=== PATIENT | female | born 1970 | race Caucasian/White ===

== ENCOUNTER 2017-12-14 17:01 | Emergency (ER) | payer OTHER ==
--- NOTE | 2017-12-14 18:18 | RAD ---
INDICATION: Right hand pain COMPARISON: None TECHNIQUE: AP, lateral, and oblique views were obtained. FINDINGS: There is no acute fracture or dislocation. There is moderate osteoarthritis about the first CMC articulation with narrowing, sclerosis, and mild subluxation. There is no significant soft tissue swelling. IMPRESSION: OSTEOARTHRITIS FIRST CMC JOINT.
--- NOTE | 2017-12-14 18:19 | RAD ---
INDICATION: Left knee pain COMPARISON: None TECHNIQUE: AP, lateral, tunnel, and sunrise views were obtained. FINDINGS: There is tricompartmental osteoarthritic change with condylar spurring and sclerosis and hypertrophic change with narrowing and sclerosis about the patellofemoral joint space compartment. There is no acute bony change. There is no joint effusion. IMPRESSION: TRICOMPARTMENTAL OSTEOARTHRITIS MOST SEVERE ABOUT THE PATELLOFEMORAL JOINT SPACE
--- NOTE | 2017-12-14 18:41 | ED ---
Lower Extremity - HPI Summary HPI Summary: 47-year-old female presents with left knee pain and right hand pain today. she states she was at the at the dog park and 2 dogs ran into her. They forced her left knee to hyperextend backwards. She states that lead got caught around her right right thumb. She has full range of motion of her thumb. She was able to ambulate. She denies any head injury. She denies any other pain. She has a history of chronic knee pain. That she takes for her. She states she took ibuprofen prior to arrival. States her pain is 3 out of 10. She states her knee feels best when is straight. - History of Current Complaint Chief Complaint: EDExtremityLower Stated Complaint: FALL/HIP PAIN Time Seen by Provider: 12/14/17 17:55 Hx Last Menstrual Period: 3 weeks agao Pain Intensity: 7 - Allergies/Home Medications Allergies/Adverse Reactions: Allergies Allergy/AdvReac Type Severity Reaction Status Date / Time Iohexol [From Omnipaque] Allergy Intermediate itching to Verified 12/14/17 17:23 extremities, head BANDAIDS Allergy REDNESS Uncoded 12/14/17 17:23 PMH/Surg Hx/FS Hx/Imm Hx Endocrine/Hematology History: Denies: Hx Diabetes, Hx Thyroid Disease Cardiovascular History: Denies: Hx Hypertension, Hx Pacemaker/ICD Respiratory History: Reports: Hx Asthma Denies: Hx Chronic Obstructive Pulmonary Disease (COPD) GI History: Denies: Hx Ulcer History: Denies: Hx Renal Disease Sensory History: Denies: Hx Hearing Aid Psychiatric History: Reports: Hx Panic Disorder - A LITTLE - Cancer History Hx Chemotherapy: No Hx Radiation Therapy: No - Surgical History Surgery Procedure, Year, and Place: JUNE - PANACOLECTOMY (DRAINS PLACED 2013)-[place]. 3 C SECTIONS; GALLBLADDER; TONSILECTOMY. 2 D&C - Immunization History Date of Tetanus Vaccine: PT STATES UNSURE Date of Influenza Vaccine: 10/03 Immunizations Up to Date: Yes Infectious Disease History: No Infectious Disease History: Denies: Hx Hepatitis, Hx Human Immunodeficiency Virus (HIV), Traveled Outside the [place] in Last 30 Days - Family History Known Family History: Positive: None - Social History Alcohol Use: None Substance Use Type: Reports: None Smoking Status (MU): Light Every Day Tobacco Smoker Review of Systems Negative: Fever Negative: Chest Pain Negative: Shortness Of Breath Positive: Myalgia - right hand and left knee pain All Other Systems Reviewed And Are Negative: Yes Physical Exam Triage Information Reviewed: Yes Vital Signs On Initial Exam: Initial Vitals Temp Pulse Resp BP Pulse Ox 98.1 F 77 20 139/100 98 12/14/17 17:23 12/14/17 17:23 12/14/17 17:23 12/14/17 17:23 12/14/17 17:23 Vital Signs Reviewed: Yes Appearance: Positive: Well-Appearing Skin: Positive: Warm, Dry Head/Face: Positive: Normal Head/Face Inspection Eyes: Positive: Normal, Conjunctiva Clear Respiratory/Lung Sounds: Positive: Clear to Auscultation, Breath Sounds Present Cardiovascular: Positive: Normal, RRR Musculoskeletal: Positive: Strength/ROM Intact - left knee and right hand, Other - neg snuff box tenderness, tenderness over IP joint right thumb, neg ballotment, tenderness on medial aspect of left knee, neg anterior drawer and chris Diagnostics - Vital Signs Vital Signs Temp Pulse Resp BP Pulse Ox 12/14/17 17:23 98.1 F 77 20 139/100 98 - Laboratory Lab Statement: Any lab studies that have been ordered have been reviewed, and results considered in the medical decision making process. - Radiology knee Xray Interpretation: No Acute Changes - IMPRESSION: TRICOMPARTMENTAL OSTEOARTHRITIS MOST SEVERE ABOUT THE PATELLOFEMORAL JOINT Radiology Interpretation Completed By: Radiologist hand Xray Interpretation: No Acute Changes - IMPRESSION: OSTEOARTHRITIS FIRST CMC JOINT. Radiology Interpretation Completed By: Radiologist Lower Extremity Course/Dx - Course Course Of Treatment: 47-year-old female presents with left knee pain and right hand pain today. she states she was at the at the [employer] and 2 dogs ran into her. They forced her left knee to hyperextend backwards. She states that lead got caught around her right right thumb. She has full range of motion of her thumb. She was able to ambulate. She denies any head injury. She denies any other pain. She has a history of chronic knee pain. That she takes for her. She states she took ibuprofen prior to arrival. States her pain is 3 out of 10. She states her knee feels best when is straight. On exam negative snuff tenderness on right hand tender over the IP joint of the right thumb neurovascularly intact. Left knee full range of motion of pain. Negative anterior drawer. Negative Chris's. X-rays show osteoarthritis. We will continue with [place] and follow-up with primary. Patient understands and agrees with plan. - Diagnoses Differential Diagnosis/HQI/PQRI: Positive: Fracture (Closed), Sprain, Strain Provider Diagnoses: Left knee pain, Pain of right thumb Discharge - Discharge Plan Condition: Good Disposition: HOME Patient Education Materials: R.I.C.E. Treatment (ED) Referrals: Tori Ruiz MACHINE SETTER [Primary Care Provider] - Additional Instructions: Take Tylenol or ibuprofen every 6 hours as needed for pain Apply ice, rest, elevate Follow up with primary care physician within 5 days Return to ED if develop any new or worsening symptoms
[2017-12-14 19:29] VITALS: BP 137/85
== END 2017-12-14 19:24 | disposition home or self-care (01) ==
LOC: ED 17:01
DX: M25.562 Pain in left knee (principal); M79.644 Pain in right finger(s); M18.9 Osteoarthritis of first carpometacarpal joint, unspecified; M17.12 Unilateral primary osteoarthritis, left knee; Z72.0 Tobacco use; W54.1XXA Struck by dog, initial encounter; Y92.830 Public park as the place of occurrence of the external cause
CPT/HCPCS: 99282

== ENCOUNTER 2019-07-23 10:11 | Emergency (ER) | payer BC, OTHER ==
--- NOTE | 2019-07-23 11:15 | UC ---
Skin Complaint HPI - HPI Summary HPI Summary: 48 yo female presents with rash to right cheek. She tells me that 3 days ago she felt some sensitivity on her right cheek and had a mild headache. 2 days ago noticed some red bumps to the same area. Today the red bumps have spread from her inferior right cheek to her right congregational and have become more sensitive and her headache has gotten worse. 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 Denies fever, chills, ear pain, vision changes, sinus symptoms, sore throat. Has not applied any creams or taken anything for the pain - History of Current Complaint Chief Complaint: UCSkin Time Seen by Provider: 07/23/19 11:14 Stated Complaint: SKIN ISSUE Hx Obtained From: Patient Hx Last Menstrual Period: 3 weeks agao Onset/Duration: Sudden Onset Onset Severity: Moderate Current Severity: Moderate Pain Intensity: 6 Pain Scale Used: 0-10 Numeric - Allergy/Home Medications Allergies/Adverse Reactions: Allergies Allergy/AdvReac Type Severity Reaction Status Date / Time iohexol Allergy Intermediate itches Verified 07/23/19 11:00 MS Iohexol [From Omnipaque] Allergy Intermediate itching to Verified 12/14/17 17 :23 extremities, head BANDAIDS Allergy REDNESS Uncoded 12/14/17 17:23 Home Medications: Home Medications Budesonide/Formote 80/4.5(NF) [Symbicort 80/4.5 (NF)] 1 puff INH BID 07/23/19 [ History Confirmed 07/23/19] Fluticasone NASAL SPRAY 50MCG* [Flonase NASAL SPRAY 50MCG*] 2 spray BOTH NARES DAILY 07/23/19 [History Confirmed 07/23/19] Loratadine [Claritin] 10 mg PO DAILY WITH MEAL 07/23/19 [History Confirmed 07/23] Sertraline HCl [Zoloft] 100 mg PO DAILY WITH MEAL 07/23/19 [History Confirmed ] buPROPion SR TAB* [Wellbutrin SR TAB*] 100 mg PO DAILY WITH MEAL 07/23/19 [ History Confirmed 07/23/19] PMH/Surg Hx/FS Hx/Imm Hx Respiratory History: Asthma Psychological History: Anxiety, Depression - Surgical History Surgical History: Yes Surgery Procedure, Year, and Place: JUNE - PANACOLECTOMY (DRAINS PLACED 2013)-[place]. 3 C SECTIONS; GALLBLADDER; TONSILECTOMY. 2 D&C - Family History Known Family History: Positive: None - Social History Lives: With Family Alcohol Use: Weekly Substance Use Type: None Smoking Status (MU): Light Every Day Tobacco Smoker Household Exposure Type: Cigarettes Review of Systems All Other Systems Reviewed And Are Negative: No Constitutional: Positive: Negative Skin: Positive: Rash Eyes: Positive: Negative ENT: Positive: Negative Respiratory: Positive: Negative Cardiovascular: Positive: Negative Neurovascular: Positive: Negative Neurological: Positive: Headache Psychological: Positive: Negative Physical Exam - Summary Physical Exam Summary: GENERAL: NAD. WDWN. No pain distress. SKIN: RIGHT FACE: Slightly raised mildly erythematous lesions with 1mm clear blisters. TTP. Do not cross midline. No auricular or periorbital involvement. HEENT: Head: AT/NC Eyes: EOM intact. Conjunctiva clear without inflammation or discharge. Ears: Hearing grossly normal. TMs intact, no bulging, erythema, or edema. Nose: Nasal mucosa pink and moist. NTTP maxillary and frontal sinus. Throat: Posterior oropharynx without exudates, erythema, or tonsillar enlargement. Uvula midline. NECK: Supple. Nontender. No lymphadenopathy. CHEST: CTAB. No r/r/w. No accessory muscle use. Breathing comfortably and in no distress. CV: RRR. Without m/r/g. Pulses intact. Cap refill <2seconds NEURO: Alert. PSYCH: Age appropriate behavior. Triage Information Reviewed: Yes Vital Signs: Initial Vital Signs Temp 98.6 F 07/23/19 10:52 Pulse 83 07/23/19 10:52 Resp 19 07/23/19 10:52 BP 144/102 07/23/19 10:52 Pulse Ox 96 07/23/19 10:52 Vital Signs: Temp Pulse Resp BP Pulse Ox 98.6 F 83 19 138/90 96 07/23/19 10:52 07/23/19 10:52 07/23/19 10:52 07/23/19 11:36 07/23/19 10:52 Vital Signs Reviewed: Yes Course/Dx - Course Course Of Treatment: Shingles to likely V3 of trigeminal nerve. Will place her on valacyclovir and have her keep the areas covered until well healed - Diagnoses Provider Diagnosis: Shingles Discharge ED - Sign-Out/Discharge Documenting (check all that apply): Patient Departure All imaging exams completed and their final reports reviewed: No Studies - Discharge Plan Condition: Stable Disposition: HOME Prescriptions: Lidocaine 4% GEL* [Topicaine 4% GEL*] 1 applic TOPICAL BID #1 tube ValACYclovir (*) [Valtrex 1 GM(*)] 1 gm PO TID #21 tab Patient Education Materials: Shingles (ED) Forms: *Work Release Referrals: Tori Ruiz NP [Primary Care Provider] - Additional Instructions: If you develop a fever, shortness of breath, chest pain, new or worsening symptoms - please call your PCP or go to the ED immediately. Your blood pressure was high at todays visit. Please see your primary provider within 4 weeks for recheck and re-evaluation. Keep the areas covered until well healed. I recommend that you avoid individuals who are immunocompromised such as those undergoing cancer treatment or infants/toddlers until your shingles have resolved. - Billing Disposition and Condition Condition: STABLE Disposition: Home
[2019-07-23 11:37] VITALS: BP 138/90
== END 2019-07-23 11:40 | disposition home or self-care (01) ==
LOC: UCEAST 10:11
DX: B02.9 Zoster without complications (principal); J45.909 Unspecified asthma, uncomplicated; F41.9 Anxiety disorder, unspecified; F32.9 Major depressive disorder, single episode, unspecified; Z91.041 Radiographic dye allergy status; Z91.048 Other nonmedicinal substance allergy status; F17.200 Nicotine dependence, unspecified, uncomplicated
CPT/HCPCS: 99212; G0463

== ENCOUNTER 2020-02-24 12:56 | Emergency (ER) | payer OTHER ==
[2020-02-24] MEDS ORDERED: NS 0.9% 1000 ML** 1,000 ML IV ONE (13:34)
[2020-02-24] MEDS ORDERED: Ondansetron INJ* 2 MG/ML VIAL IV ONE (13:34)
[2020-02-24] MEDS ORDERED: Morphine 4 MG/ML VIAL (1 ml) 4 MG/ML VIAL IV ONE (13:34)
--- NOTE | 2020-02-24 13:36 | ED ---
GI/ HPI - HPI Summary HPI Summary: 49-year-old female presents with abd pain for the past week. She has a history of diverticulitis with most recent infection in 2008. she was place [facility] by her primary a day ago. She has had some loose stool. She admits to nausea but no vomiting. States she had a panniculectomy and her tubes tied. She has never had this before. She started taking Tylenol for the pain with minimal relief. She denies any fevers. She admits to decreased appetite. She denies any urinary symptoms. - History of Current Complaint Chief Complaint: EDAbdPain Time Seen by Provider: 02/24/20 13:22 Stated Complaint: ABDOMINAL PAIN PER PT Hx Last Menstrual Period: 3 weeks agao Pain Intensity: 3 - Allergy/Home Medications Allergies/Adverse Reactions: Allergies Allergy/AdvReac Type Severity Reaction Status Date / Time iohexol Allergy Intermediate itches Verified 02/24/20 13:29 BANDAIDS Allergy REDNESS Uncoded 02/24/20 13:29 Home Medications: Home Medications Budesonide/Formote 80/4.5(NF) [Symbicort 80/4.5 (NF)] 2 puff INH DAILY 07/23/19 [History Confirmed 02/24/20] Fluticasone NASAL SPRAY 50MCG* [Flonase NASAL SPRAY 50MCG*] 2 spray BOTH NARES DAILY 07/23/19 [History Confirmed 02/24/20] Sertraline HCl [Zoloft] 150 mg PO DAILY WITH MEAL 07/23/19 [History Confirmed ] buPROPion SR TAB* [Wellbutrin SR TAB*] 100 mg PO DAILY WITH MEAL 07/23/19 [ History Confirmed 02/24/20] ALPRAZolam TAB* [Xanax TAB*] 0.25 - 0.5 mg PO BID PRN 02/24/20 [History Confirmed 02/24/20] Amitriptyline TAB* [Elavil TAB*] 50 mg PO BEDTIME 02/24/20 [History Confirmed ] Atorvastatin* [Lipitor*] 20 mg PO DAILY 02/24/20 [History Confirmed 02/24/20] Bupropion XL* [Wellbutrin XL *] 150 mg PO DAILY 02/24/20 [History Confirmed 08/06] Cholecalciferol TAB* [Vitamin D TAB*] 1,000 unit PO DAILY 02/24/20 [History Confirmed 02/24/20] Ciprofloxacin TAB* [Cipro 500 MG TAB*] 500 mg PO BID 02/24/20 [History Confirmed 02/24/20] metroNIDAZOLE TAB* [Flagyl 250 mg TAB*] 500 mg PO TID 02/24/20 [History Confirmed 02/24/20] PMH/Surg Hx/FS Hx/Imm Hx Endocrine/Hematology History: Denies: Hx Diabetes, Hx Thyroid Disease Cardiovascular History: Denies: Hx Hypertension, Hx Pacemaker/ICD Respiratory History: Denies: Hx Asthma, Hx Chronic Obstructive Pulmonary Disease (COPD) GI History: Denies: Hx Ulcer History: Denies: Hx Renal Disease Sensory History: Denies: Hx Hearing Aid Psychiatric History: Reports: Hx Panic Disorder - Cancer History Hx Chemotherapy: No Hx Radiation Therapy: No - Surgical History Surgery Procedure, Year, and Place: JUNE - PANACOLECTOMY (DRAINS PLACED 2013)-[place]. 3 C SECTIONS; GALLBLADDER; TONSILECTOMY. 2 D&C. RIGHT BREAST BIOPSY - Immunization History Date of Tetanus Vaccine: PT STATES UNSURE Date of Influenza Vaccine: 10/03 Infectious Disease History: No Infectious Disease History: Denies: Hx Hepatitis, Hx Human Immunodeficiency Virus (HIV), Traveled Outside the [place] in Last 30 Days - Family History Known Family History: Positive: None - Social History Alcohol Use: Weekly Substance Use Type: Reports: None Smoking Status (MU): Light Every Day Tobacco Smoker Review of Systems Negative: Fever Negative: Chest Pain Negative: Shortness Of Breath Positive: Abdominal Pain, Diarrhea, Nausea. Negative: Vomiting All Other Systems Reviewed And Are Negative: Yes Physical Exam Triage Information Reviewed: Yes Vital Signs On Initial Exam: Initial Vitals Temp Pulse Resp BP Pulse Ox 98.0 F 113 18 146/102 96 02/24/20 13:06 02/24/20 13:06 02/24/20 13:06 02/24/20 13:06 02/24/20 13:06 Vital Signs Reviewed: Yes Appearance: Positive: Well-Appearing Skin: Positive: Warm, Dry Head/Face: Positive: Normal Head/Face Inspection Eyes: Positive: Normal, Conjunctiva Clear ENT: Positive: Pharynx normal Respiratory/Lung Sounds: Positive: Clear to Auscultation, Breath Sounds Present Cardiovascular: Positive: Normal, RRR Abdomen Description: Positive: Soft, Other: - tenderness in RLQ Bowel Sounds: Positive: Present Musculoskeletal: Positive: Normal Neurological: Positive: Normal Procedures - Sedation Patient Received Moderate/Deep Sedation with Procedure: No Diagnostics - Vital Signs Vital Signs Temp Pulse Resp BP Pulse Ox 02/24/20 13:06 98.0 F 113 18 146/102 96 - Laboratory Result Diagrams: 02/24/20 13:55 02/24/20 13:55 Lab Statement: Any lab studies that have been ordered have been reviewed, and results considered in the medical decision making process. - CT abd CT Interpretation Completed By: Radiologist Summary of CT Findings: Normal appendix. No abnormal masses or fluid collections are noted. No definite dilatation of bowel loops is present to suggest bowel obstruction. Distended stomach with fluid and food material presumably in the stomach. - Ultrasound No standard instances Ultrasound Interpretation Completed By: Radiologist Summary of Ultrasound Findings: IMPRESSION: Ovaries are not visualized. Heterogeneous echotexture of the uterus with fibroid in the right posterior uterus measuring 2.2 x 2.7 x 2.1. Re-Evaluation - Re-Evaluation First Eval Re-Evaluation Time: 15:38 Change: Improved Comment: feeling better, discussed results GIGU Course/Dx - Course Course Of Treatment: 49-year-old female presents with abd pain for the past week. She has a history of diverticulitis with most recent infection in 2008. she was [facility] by her primary a day ago. She has had some loose stool. She admits to nausea but no vomiting. States she had a panniculectomy and her tubes tied. She has never had this before. She started taking Tylenol for the pain with minimal relief. She denies any fevers. She admits to decreased appetite. She denies any urinary symptoms. On exam has tenderness of RLQ. wbc normal. crp normal. CT shows no acute findings. ultrasound did not get good view of ovaries but uterus shows fibriods. urine likely contaminant, will wait for final culture as no uti symptoms. discussed do not have reason for pain. told take tyenlol or ibuprofen as needed for pain. told follow up with primary. patient understands and agrees with plan. - Diagnoses Differential Diagnoses - Female: Appendicitis, Diverticulitis, Ovarian Cyst Provider Diagnoses: Abdominal pain Discharge ED - Sign-Out/Discharge Documenting (check all that apply): Patient Departure - Discharge Plan Condition: Good Disposition: HOME Patient Education Materials: Abdominal Pain (ED) Referrals: Tori Ruiz PREDATORY ANIMAL TRAPPER [Primary Care Provider] - Additional Instructions: Drink small amounts of fluid as tolerated When able to eat follow BRAT diet: Bananas, rice, applesauce, toast Take ibuprofen or Tylenol for pain as needed every 6 hours Follow up with primary within 5 days Return to ED if develop any new or worsening symptoms - Billing Disposition and Condition Condition: GOOD Disposition: Home
[2020-02-24 14:10] LABS: ABS Lymphocytes 1.5 10^3/ul (1.0-4.8); ABS Monocytes 0.4 10^3/ul (0-0.8); ABS Neutrophils 4.4 10^3/ul (1.5-7.7); Eosinophil % 0.7 %; Hematocrit 42 % (35-47); Hemoglobin 14.2 g/dL (12.0-16.0); Lymphocyte % 23.7 %; Mean Corpuscular HGB Conc 34 g/dL (31-36); Mean Corpuscular Hemoglobin 30 pg (27-31); Mean Corpuscular Volume 88 fL (80-97); Mean Platelet Volume 7.7 fL (7.4-10.4); Platelet Count 295 10^3/uL (150-450); Red Blood Count 4.72 10^6 /uL (3.70-4.87); Red Cell Distribution Width 13 % (10-15); White Blood Count 6.4 10^3/uL (3.5-10.8)
[2020-02-24 14:31] LABS: Albumin 4.1 g/dL (3.2-5.2); Albumin/Globulin Ratio 1.6 (1-3); BUN/Creatinine Ratio 14.5 (8-20); C Reactive Protein 1.16 mg/L (<8.01); Calcium 9.4 mg/dL (8.6-10.3); EGFR African American 87.7 (>60); EGFR Non-African American 72.5 (>60); Globulin 2.6 g/dL (2-4); Total Bilirubin 0.3 mg/dL (0.2-1.0); Total Protein 6.7 g/dL (6.4-8.9)
--- OUTSIDE RECORDS SUMMARY | 2020-02-24 15:15 | XMS REPORT | Continuity of Care Document ---
:1970 External Reference #:[id number] Author Name Ayala Redman M.D., R.D. (transmitted by agent of provider Selena Lee ) Address [address] [place] [id number] Problems Description No Information Available Social History Type Date Description Comments Sex Unknown Cigarette Use Occasionally Smokes Cigarettes ETOH Use Denies alcohol use Recreational Drug Use Denies Drug Use Tobacco Use Start: Unknown Patient is a current smoker, smokes some days Smoking Status Reviewed: 02/23/20 Patient is a current smoker, smokes some days Enjoy Exercising Enjoys exercising Allergies, Adverse Reactions, Alerts Active Allergies Reaction Severity Comments Date Contrast Dye 01/17/2017 Ibuprofen stomach pain, leg cramps 01/17/2017 Seasonal 12/01/2017 Rhubarb Preparation 12/22/2019 Medications Active Medications SIG Qnty Indications Ordering Date Provider [facility]2020 0.25mg tablets by mouth Storm, INSTRUCTIONAL FACILITATOR-C Tablets 2 times a day as needed; maximum daily dose = 4 Bupropion 1 by mouth every 30tabs Karlo Mcadams 11/29/2019 Hydrochloride ER (SR) morning (in M.D. addition to 300m 100mg Tablets ER 12HR g xl) Atorvastatin Calcium Take One Tablet 90tabs E78.2 Shawnti R. 11/05/2019 Once Daily Storm, INSTRUCTIONAL FACILITATOR-C 20mg Tablets Amitriptyline HCL take 3 tablets 90tabs B02.22 [facility] 10/12/2019 25mg by mouth once Storm, INSTRUCTIONAL FACILITATOR-C Tablets daily at bedtime Fluticasone 2 sprays in each 1units Brywangela R. 02/08/2019 Propionate Nasal nare daily Storm, INSTRUCTIONAL FACILITATOR-C Lawrence 24- Hour 50mcg/Act Suspension Sertraline HCL Take One And 45tabs F41.9 Ayala Redman, 03/02/2018 100mg One-Half Tablets M.D., R.D. Tablets By Mouth Every Day Wellbutrin XL 1 by mouth every 30tabs F41.9 Darrin 01/29/2018 150mg morning with MD Sallie Tablets ER 24HR zoloft Symbicort Inhale Two Puffs 10.2units Karlo Mcadams, By Mouth Twice A M.D. 160-4.5mcg/Act Day Aerosol Allergy Relief take one tablet Unknown 10mg by mouth once Tablets daily for allergies Calcium + D3 1 by mouth every Unknown Tablets day Aleve 1-2 by mouth Unknown 220mg Tablets everyday with food as needed arthritis pain Vitamin C Unknown W/Vitamin E [id number] Capsules Naproxen Sodium Mcelroy, 550mg Raminder, Tablets D.D.S. History Medications Amitriptyline HCL take 1 tablet by 30tabs B02.22 Karlo Mcadams, 08/31/2019 - 10mg mouth at bedtime M.D. 10/11/2019 Tablets Oxycodone HCL 1-2 q4 hours as 30tabs B02.22 Karlo Mcadams, 08/26/2019 - 5mg Tablets needed severe M.D. 11/29/2019 pain. Immunizations CPT Code Status Date Vaccine Lot # [id number] Given 12/22/2019 Tdap (Adacel) [id number] 53767 Given 10/12/2019 Influenza Virus Vaccine, Quadrivalent, 3 Yr > [id number] Quad, Preserv Free 71568 Given 09/22/2018 Influenza Virus Vaccine, Quadrivalent, 3 Yr > [id number] Quad, Preserv Free 97992 Given Unknown Influenza Virus Vaccine, Quadrivalent, 3 Yr > Quad, Preserv Free [id number] Refused 04/07/2017 Influenza Virus Vaccine, Quadrivalent, 3 Yr > Quad , Preserv Free Vital Signs Date Vital Result Comment 12/22/2019 9:12am Weight 289.00 lb Weight 131.090 kg BP Systolic 130 mmHg BP Diastolic 80 mmHg Heart Rate 112 /min Body Temperature 97.1 F Respiratory Rate 16 /min Height 62.5 inches 5'2.50" BMI (Body Mass Index) 52.0 kg/m2 11/29/2019 3:46pm Weight 296.00 lb Weight 134.266 kg BP Systolic 120 mmHg BP Diastolic 80 mmHg Heart Rate 74 /min Body Temperature 98.1 F Respiratory Rate 16 /min O2 % BldC Oximetry 98 % Results Test Acquired Date Facility Test Result H/L Range Note Comp Metabolic 12/22/2019 [facility] Sodium 137 mmol/ L Normal 135-145 Panel [phone] Potassium 4.8 mmol/L Normal 3.5-5.0 Chloride 105 mmol/L Normal 101-111 Co2 Carbon Dioxide 25 mmol/L Normal 22-32 Anion Gap 7 mmol/L Normal 2-11 Glucose 105 mg/dL High 70-100 Blood Urea Nitrogen 13 mg/dL Normal 6-24 Creatinine 0.81 mg/dL Normal 0.51-0.95 BUN/Creatinine Ratio 16.0 Normal 8-20 Calcium 9.5 mg/dL Normal 8.6-10.3 Total Protein 6.5 g/dL Normal 6.4-8.9 Albumin 4.2 g/dL Normal 3.2-5.2 Globulin 2.3 g/dL Normal 2-4 Albumin/Globulin Ratio 1.8 Normal 1-3 Total Bilirubin 0.30 mg/dL Normal 0.2-1.0 Alkaline Phosphatase 60 U/L Normal 34-104 Alt 13 U/L Normal 7-52 Ast 14 U/L Normal 13-39 Egfr Non- 74.5 >60 Egfr 90.2 >60 1 CBC Auto 12/22/2019 [facility] White Blood 5.5 10^3/ uL Normal 3.5-10.8 Diff [phone] Count Red Blood Count 4.93 10^6/uL High 3.70-4.87 Hemoglobin 15.1 g/dL Normal 12.0-16.0 Hematocrit 44 % Normal 35-47 Mean Corpuscular Volume 90 fL Normal 80-97 Mean Corpuscular Hemoglobin 31 pg Normal 27-31 Mean Corpuscular HGB Conc 34 g/dL Normal 31-36 Red Cell Distribution Width 13 % Normal 10-15 Platelet Count 332 10^3/uL Normal 150-450 Mean Platelet Volume 9.0 fL Normal 7.4-10.4 Abs Neutrophils 3.9 10^3/uL Normal 1.5-7.7 Abs Lymphocytes 1.2 10^3/uL Normal 1.0-4.8 Abs Monocytes 0.3 10^3/uL Normal 0-0.8 Abs Eosinophils 0.1 10^3/uL Normal 0-0.6 Abs Basophils 0.0 10^3/uL Normal 0-0.2 Abs Nucleated RBC 0.0 10^3/uL Granulocyte % 70.9 % Lymphocyte % 21.2 % Monocyte % 5.9 % Eosinophil % 1.4 % Basophil % 0.6 % Nucleated Red Blood Cells % 0.0 Lipid Profile 12/22/2019 [facility] Triglycerides 104 mg/dL 2 (Trig/Chol/HDL) [phone] Cholesterol 180 mg/dL 3 HDL Cholesterol 60.8 mg/dL 4 LDL Cholesterol 98 mg/dL 5 Laboratory 12/22/2019 [facility] TSH (Thyroid 3.99 Normal 0.34-5.60 6 test finding [phone] Stim Horm) mcIU/mL Hemoglobin A1c (Glyco HGB) 5.4 % Normal 4.0-5.6 7 Laboratory test 11/25/2019 [facility] C Reactive 1.85 mg/L Normal <8.01 8 finding [phone] Protein Erythrocyte Sed Rate 10 mm/Hr Normal 0-29 9 Lyme Screen W/ Reflex To WB Negative Negative 10 Nuclear AB (Neema) By Ifa Igg <1:80 (Negative) 11 Laboratory test 10/12/2019 [facility] Vitamin D 23.4 Normal 20-50 12 finding [phone] Total 25(Oh) ng/mL CBC Auto Diff 10/12/2019 [facility] White Blood 5.0 Normal 3.5-10.8 [phone] Count 10^3/uL Red Blood Count 4.97 10^6/uL High 3.70-4.87 Hemoglobin 14.9 g/dL Normal 12.0-16.0 Hematocrit 45 % Normal 35-47 Mean Corpuscular Volume 90 fL Normal 80-97 Mean Corpuscular Hemoglobin 30 pg Normal 27-31 Mean Corpuscular HGB Conc 33 g/dL Normal 31-36 Red Cell Distribution Width 14 % Normal 10-15 Platelet Count 311 10^3/uL Normal 150-450 Mean Platelet Volume 8.3 fL Normal 7.4-10.4 Abs Neutrophils 3.4 10^3/uL Normal 1.5-7.7 Abs Lymphocytes 1.2 10^3/uL Normal 1.0-4.8 Abs Monocytes 0.3 10^3/uL Normal 0-0.8 Abs Eosinophils 0.1 10^3/uL Normal 0-0.6 Abs Basophils 0.0 10^3/uL Normal 0-0.2 Abs Nucleated RBC 0.0 10^3/uL Granulocyte % 67.8 % Lymphocyte % 23.2 % Monocyte % 6.5 % Eosinophil % 1.8 % Basophil % 0.7 % Nucleated Red Blood Cells % 0.1 Comp Metabolic 10/12/2019 [facility] Sodium 139 mmol/ L Normal 135-145 Panel [phone] Potassium 4.6 mmol/L Normal 3.5-5.0 Chloride 106 mmol/L Normal 101-111 Co2 Carbon Dioxide 25 mmol/L Normal 22-32 Anion Gap 8 mmol/L Normal 2-11 Glucose 105 mg/dL High 70-100 Blood Urea Nitrogen 13 mg/dL Normal 6-24 Creatinine 0.71 mg/dL Normal 0.51-0.95 BUN/Creatinine Ratio 18.3 Normal 8-20 Calcium 9.6 mg/dL Normal 8.6-10.3 Total Protein 6.6 g/dL Normal 6.4-8.9 Albumin 4.3 g/dL Normal 3.2-5.2 Globulin 2.3 g/dL Normal 2-4 Albumin/Globulin Ratio 1.9 Normal 1-3 Total Bilirubin 0.40 mg/dL Normal 0.2-1.0 Alkaline Phosphatase 58 U/L Normal 34-104 Alt 11 U/L Normal 7-52 Ast 14 U/L Normal 13-39 Egfr Non- 86.8 >60 Egfr 105.0 >60 13 Lipid Profile 10/12/2019 [facility] Triglycerides 98 mg/dL 14 (Trig/Chol/HDL) [phone] Cholesterol 306 mg/dL 15 HDL Cholesterol 70.5 mg/dL 16 LDL Cholesterol 216 mg/dL 17 1 Because ethnic data is not always readily available, this report includes an eGFR for both -Americans and non- Americans. The National Kidney Disease Education Program (NKDEP) does not endorse the use of the MDRD equation for patients that are not between the ages of 18 and 70, are , have extremes of body size, muscle mass, or nutritional status, or are non- or non-. According to the National Kidney Foundation, irrespective of diagnosis, the stage of the disease is based on the level of kidney function: Stage Description GFR(mL/min/1.73 m(2)) 1 Kidney damage with normal or decreased GFR 90 2 Kidney damage with mild decrease in GFR 60-89 3 Moderate decrease in GFR 30-59 4 Severe decrease in GFR 15-29 5 Kidney failure <15 (or dialysis) 2 Desirable: <150 Borderline High: 150-199 High: 200-499 Very High: >500 3 Desirable: <200 Borderline High: 200-239 High: >239 4 Low: <40 Desirable: 40-60 High: >60 5 Desirable: <100 Near Optimal: 100-129 Borderline High: 130-159 High: 160-189 Very High: >189 6 [id number] Therapeutic target for the treatment of diabetes mellitus patients is <7% HBA1C, and in selective patients <6.0%. Please refer to [place] [employer] Association diabetic care guidelines for further information. 8 Copy Result to: KARLO MCADAMS ([id number]) 9 Copy Result to: KARLO MCADAMS ([id number]) 10 Copy Result to: KARLO MCADAMS ([id number]) 11 <1:80 (Negative) REFERENCE VALUE <1:80 (Negative) Test Performed by: [facility] [address] [place] [address] Blind Hanger: Juanito Chowdhury M.D. Ph.D.; IA# [id number] 12 Total 25-Hydroxyvitamin D2 and D3 (25-OH-VitD) <10 ng/mL (severe deficiency) 10-19 ng/mL (mild to moderate deficiency) 20-50 ng/mL (optimum levels) 51-80 ng/mL (increased risk of hypercalciuria) >80 ng/mL (toxicity possible) 13 Because ethnic data is not always readily available, this report includes an eGFR for both -Americans and non- Americans. The National Kidney Disease Education Program (NKDEP) does not endorse the use of the MDRD equation for patients that are not between the ages of 18 and 70, are , have extremes of body size, muscle mass, or nutritional status, or are non- or non-. According to the National Kidney Foundation, irrespective of diagnosis, the stage of the disease is based on the level of kidney function: Stage Description GFR(mL/min/1.73 m(2)) 1 Kidney damage with normal or decreased GFR 90 2 Kidney damage with mild decrease in GFR 60-89 3 Moderate decrease in GFR 30-59 4 Severe decrease in GFR 15-29 5 Kidney failure <15 (or dialysis) 14 Desirable: <150 Borderline High: 150-199 High: 200-499 Very High: >500 15 Desirable: <200 Borderline High: 200-239 High: >239 16 Low: <40 Desirable: 40-60 High: >60 17 Desirable: <100 Near Optimal: 100-129 Borderline High: 130-159 High: 160-189 Very High: >189 Procedures Description No Information Available Medical Devices Description No Information Available Encounters Type Date Location Provider Dx Diagnosis Office Visit 02/03/2020 Main Office Tori Sanches F41.9 Anxiety disorder, 11:30a Storm, INSTRUCTIONAL FACILITATOR-C unspecified Office Visit 12/22/2019 [facility] Tori Sanches Z00.00 Encntr for general 9:00a Storm, INSTRUCTIONAL FACILITATOR-C adult medical exam w/o abnormal findings E78.2 Mixed hyperlipidemia B02.22 Postherpetic trigeminal neuralgia Z12.31 Encntr screen mammogram for malignant neoplasm of breast Z23 Encounter for immunization Office Visit 11/29/2019 3:45p [facility] Karlo Mcadams B02.22 Postherpetic M.D. trigeminal neuralgia J06.9 Acute upper respiratory infection, unspecified F41.9 Anxiety disorder, unspecified Office Visit 11/05/2019 11:15a Main Office Tori Sanches B02.22 Postherpetic Storm, INSTRUCTIONAL FACILITATOR-C trigeminal neuralgia D17.1 Benign lipomatous neoplasm of skin, subcu of trunk E78.2 Mixed hyperlipidemia Office Visit 10/12/2019 10:00a [facility] Karlo Mcadams, B02.22 Postherpetic M.D. trigeminal neuralgia E55.9 Vitamin D deficiency, unspecified Z23 Encounter for immunization Office Visit 09/21/2019 10:00a [facility] Karlo Mcadams, B02.22 Postherpetic M.D. trigeminal neuralgia Office Visit 08/31/2019 11:00a [facility] Karlo Mcadams, B02.22 Postherpetic M.D. trigeminal neuralgia Assessments Date Code Description Provider 02/03/2020 F41.9 Anxiety disorder, unspecified Tori Ruiz INSTRUCTIONAL FACILITATOR-C 12/22/2019 Z00.00 Encounter for general adult medical JARED Raya- Eliseo examination without abnormal findings 12/22/2019 E78.2 Mixed hyperlipidemia Tori Ruiz INSTRUCTIONAL FACILITATOR-C 12/22/2019 B02.22 Postherpetic trigeminal neuralgia VASYL RayaP-C 12/22/2019 Z12.31 Encounter for screening mammogram for VASYL RayaP-C malignant neoplasm of breast 12/22/2019 Z23 Encounter for immunization Tori Ruiz INSTRUCTIONAL FACILITATOR-C 11/29/2019 B02.22 Postherpetic trigeminal neuralgia Karlo Mcadams M.D. 11/29/2019 J06.9 Acute upper respiratory infection, Karlo Mcadams M.D. unspecified 11/29/2019 F41.9 Anxiety disorder, unspecified Karlo Mcadams M.D. 11/05/2019 B02.22 Postherpetic trigeminal neuralgia Tori Ruiz INSTRUCTIONAL FACILITATOR-C 11/05/2019 D17.1 Benign lipomatous neoplasm of skin and Tori Ruiz INSTRUCTIONAL FACILITATOR-C subcutaneous tissue of trunk 11/05/2019 E78.2 Mixed hyperlipidemia Tori Ruiz, INSTRUCTIONAL FACILITATOR-C 10/12/2019 B02.22 Postherpetic trigeminal neuralgia aKrlo Mcadams M.D. 10/12/2019 E55.9 Vitamin D deficiency, unspecified Karlo Mcadams M.D. 10/12/2019 Z23 Encounter for immunization Karlo Mcadams M.D. 09/21/2019 B02.22 Postherpetic trigeminal neuralgia Karlo Mcadams M.D. 08/31/2019 B02.22 Postherpetic trigeminal neuralgia Karlo Mcadams M.D. Plan of Treatment No Information Available Functional Status Description No Information Available Mental Status Description No Information Available Referrals Refer to Dr Reason for Referral Status Appt Date Mickey Kang Referral to neurology for post herpetic Scheduled 2019 neuralgia/trigeminal neuralgia. - - Please contact Pt to schedule apt. - - Please fax appointment date/time to [facility], [place] [address] [phone]
--- OUTSIDE RECORDS SUMMARY | 2020-02-24 15:15 | XMS REPORT | Continuity of Care Document ---
:1970 External Reference #:[id number] Author Name Ayala Redman M.D., RMathew (transmitted by agent of provider Olga Barkley) Address [address] [place] [address] Problems Description No Information Available Social History Type Date Description Comments Sex Unknown Cigarette Use Occasionally Smokes Cigarettes ETOH Use Denies alcohol use Recreational Drug Use Denies Drug Use Tobacco Use Start: Unknown Patient is a current smoker, smokes some days Smoking Status Reviewed: 02/24/20 Patient is a current smoker, smokes some days Enjoy Exercising Enjoys exercising Allergies, Adverse Reactions, Alerts Active Allergies Reaction Severity Comments Date Contrast Dye 01/17/2017 Ibuprofen stomach pain, leg cramps 01/17/2017 Seasonal 12/01/2017 Rhubarb Preparation 12/22/2019 Medications Active Medications SIG Qnty Indications Ordering Date Provider Ciprofloxacin HCL 1 by mouth twice 14tabs R10.9 Ayala Redman, 02/23/2020 500mg a day for M.D., R.D. Tablets infection Metronidazole 1 by mouth three 21tabs R10.9 Ayala Redman, 02/23/2020 500mg times a day M.D., R.D. Tablets Alprazolam take 1 to 2 30tabs Tori RLorenza 02/03/2020 0.25mg tablets by mouth Joseph ENDOCRINOLOGIST-C Tablets 2 times a day as needed; maximum daily dose = 4 Bupropion 1 by mouth every 30tabs Karlo Mcadams, 11/29/2019 Hydrochloride ER (SR) morning (in M.D. addition to 300m 100mg Tablets ER 12HR g xl) Atorvastatin Calcium Take One Tablet 90tabs E78.2 Brywnti RLorenza 11/05/2019 Once Daily Joseph ENDOCRINOLOGIST-C 20mg Tablets Amitriptyline HCL take 3 tablets 90tabs B02.22 Shawnti R. 10/12/2019 25mg by mouth once Storm, ENDOCRINOLOGIST-C Tablets daily at bedtime Fluticasone 2 sprays in each 1units Shawnti R. 02/08/2019 Propionate Nasal nare daily Storm, ENDOCRINOLOGIST-C Delia 24- Hour 50mcg/Act Suspension Sertraline HCL Take [...] arthritis pain Vitamin C Unknown W/Vitamin E [id number] Capsules Naproxen Sodium Mcelroy, 550mg Raminder, Tablets D.D.S. History Medications Amitriptyline HCL take 1 tablet by 30tabs B02.22 Karlo Mcadams, 08/31/2019 - 10mg mouth at bedtime M.D. 10/11/2019 Tablets Oxycodone HCL 1-2 q4 hours as 30tabs B02.22 Karlo Mcadams, 08/26/2019 - 5mg Tablets needed severe M.D. 11/29/2019 pain. Immunizations CPT Code Status Date Vaccine Lot # [id number] Given 12/22/2019 Tdap (Adacel) [id number] 31759 Given 10/12/2019 Influenza Virus Vaccine, Quadrivalent, 3 Yr > [id number] Quad, Preserv Free 55335 Given 09/22/2018 Influenza Virus Vaccine, Quadrivalent, 3 Yr > [id number] Quad, Preserv Free 30884 Given Unknown Influenza Virus Vaccine, Quadrivalent, 3 Yr > Quad, Preserv Free [id number] Refused 04/07/2017 Influenza Virus Vaccine, Quadrivalent, 3 [...] Result H/L Range Note Comp Metabolic 12/22/2019 [facility] Sodium 137 mmol/ L Normal 135-145 Panel [phone] Potassium 4.8 mmol/L Normal 3.5-5.0 Chloride 105 [...] Egfr 90.2 >60 1 CBC Auto 12/22/2019 [facility] White Blood 5.5 10^3/ uL Normal 3.5-10.8 Diff [phone] Count Red Blood Count 4.93 10^6/uL High [...] Blood Cells % 0.0 Lipid Profile 12/22/2019 [facility] Triglycerides 104 mg/dL 2 (Trig/Chol/HDL) [phone] Cholesterol 180 mg/dL 3 HDL Cholesterol 60.8 mg/dL 4 LDL Cholesterol 98 mg/dL 5 Laboratory 12/22/2019 [facility] TSH (Thyroid 3.99 Normal 0.34-5.60 6 test finding [phone] Stim Horm) mcIU/mL Hemoglobin A1c (Glyco HGB) 5.4 % Normal 4.0-5.6 7 Laboratory test 11/25/2019 [facility] C Reactive 1.85 mg/L Normal <8.01 8 finding [phone] Protein Erythrocyte Sed Rate 10 mm/Hr Normal 0-29 9 Lyme Screen W/ Reflex To WB Negative Negative 10 Nuclear AB (Neema) By Ifa Igg <1:80 (Negative) 11 Laboratory test 10/12/2019 [facility] Vitamin D 23.4 Normal 20-50 12 finding [phone] Total 25(Oh) ng/mL CBC Auto Diff 10/12/2019 [facility] White Blood 5.0 Normal 3.5-10.8 [phone] Count 10^3/uL Red Blood Count 4.97 10^6/uL [...] Blood Cells % 0.1 Comp Metabolic 10/12/2019 [facility] Sodium 139 mmol/ L Normal 135-145 Panel [phone] Potassium 4.6 mmol/L Normal 3.5-5.0 Chloride 106 [...] Egfr 105.0 >60 13 Lipid Profile 10/12/2019 [facility] Triglycerides 98 mg/dL 14 (Trig/Chol/HDL) [phone] Cholesterol 306 mg/dL 15 HDL Cholesterol 70.5 [...] 130-159 High: 160-189 Very High: >189 6 [id number] Therapeutic target for the treatment of diabetes mellitus patients is <7% HBA1C, and in selective patients <6.0%. Please refer to [place] Diabetes Association diabetic care guidelines for further information. 8 Copy Result to: KARLO MCADAMS ([id number]) 9 Copy Result to: KARLO MCADAMS ([id number]) 10 Copy Result to: KARLO MCADAMS ([id number]) 11 <1:80 (Negative) REFERENCE VALUE <1:80 (Negative) Test Performed by: [facility] [address] [place] [id number] Vice President Financial: Juanito Chowdhury M.D. Ph.D.; CLIA# [id number] 12 Total 25-Hydroxyvitamin D2 and D3 (25-OH-VitD) [...] Date Location Provider Dx Diagnosis Office Visit 02/23/2020 Main Office Ayala Redman, R10.9 Unspecified 10:45a Rayo RMathew abdominal pain Office Visit 02/03/2020 Main Office Tori Sanches F41.9 Anxiety disorder, 11:30a VASYL RuizP-C unspecified Office Visit 12/22/2019 [facility] Tori Sanches Z00.00 Encntr for general 9:00a VASYL RuizP-C adult medical exam w/o abnormal findings E78.2 Mixed hyperlipidemia B02.22 Postherpetic trigeminal neuralgia Z12.31 Encntr screen mammogram for malignant neoplasm of breast Z23 Encounter for immunization Office Visit 11/29/2019 3:45p Velpen Gianluca Zurita Mcadams, B02.22 Postherpetic M.D. trigeminal neuralgia J06.9 Acute upper respiratory infection, unspecified F41.9 Anxiety disorder, unspecified Office Visit 11/05/2019 11:15a Main Office Shawnti R. B02.22 Postherpetic Storm, ENDOCRINOLOGIST-C trigeminal neuralgia D17.1 Benign lipomatous neoplasm of skin, subcu of trunk E78.2 Mixed hyperlipidemia Office Visit 10/12/2019 10:00a [facility] Karlo Mcadams, B02.22 Postherpetic M.D. trigeminal neuralgia E55.9 Vitamin D deficiency, unspecified Z23 Encounter for immunization Office Visit 09/21/2019 10:00a Velpen Gianluca Zurita Mcadams, B02.22 Postherpetic M.D. trigeminal neuralgia Office Visit 08/31/2019 11:00a [facility] Karlo Pema, B02.22 Postherpetic M.D. trigeminal neuralgia Assessments Date Code Description Provider 02/24/2020 R10.9 Unspecified abdominal pain Ayala Redman M.D., R.D. 02/23/2020 R10.9 Unspecified abdominal pain Ayala Redman M.D., R.D. 02/03/2020 F41.9 Anxiety disorder, unspecified Tori Ruiz, ENDOCRINOLOGIST-C 12/22/2019 Z00.00 Encounter for general adult medical Tori Ruiz, ENDOCRINOLOGIST- C examination without abnormal findings 12/22/2019 E78.2 Mixed hyperlipidemia Brywnti R. Joseph, ENDOCRINOLOGIST-C 12/22/2019 B02.22 Postherpetic trigeminal neuralgia Shawnti R. Joseph, ENDOCRINOLOGIST-C 12/22/2019 Z12.31 Encounter for screening mammogram for Shawnti R. Joseph, ENDOCRINOLOGIST-C malignant neoplasm of breast 12/22/2019 Z23 Encounter for immunization Brywnturiel Ruiz, ENDOCRINOLOGIST-C 11/29/2019 B02.22 Postherpetic trigeminal neuralgia Karlo Mcadams M.D. 11/29/2019 J06.9 Acute upper respiratory infection, Karlo Mcadams M.D. unspecified 11/29/2019 F41.9 Anxiety disorder, unspecified Karlo Mcadams M.D. 11/05/2019 B02.22 Postherpetic trigeminal neuralgia YANIQEU Raya 11/05/2019 D17.1 Benign lipomatous neoplasm of skin and YANIQUE Raya subcutaneous tissue of trunk 11/05/2019 E78.2 Mixed hyperlipidemia YANIQUE Raya 10/12/2019 B02.22 Postherpetic trigeminal neuralgia Karlo Mcadams M.D. 10/12/2019 E55.9 Vitamin D deficiency, [...] - - Please fax appointment date/time to [facility], [phone]. [address] [place] [address] [phone]
--- OUTSIDE RECORDS SUMMARY | 2020-02-24 15:15 | XMS REPORT | Continuity of Care Document ---
:1970 External Reference #:[id number] Author Name TYLOR RayaC (transmitted by agent of provider Olga Barkley) Address [address] [place] [address] Problems Description No Information Available Social History Type Date Description Comments Sex Unknown Cigarette Use Occasionally Smokes Cigarettes ETOH Use Denies alcohol use Recreational Drug Use Denies Drug Use Tobacco Use Start: Unknown Patient is a current smoker, smokes some days Smoking Status Reviewed: 09/22/18 Patient is a current smoker, smokes some days Enjoy Exercising Enjoys exercising Allergies, Adverse Reactions, Alerts Active Allergies Reaction Severity Comments Date Contrast Dye 01/17/2017 Ibuprofen stomach pain, leg cramps 01/17/2017 Seasonal 12/01/2017 Rhubarb Preparation 12/22/2019 Medications Active Medications SIG Qnty Indications Ordering Date Provider Alprazolam take 1 to 2 30tabs Tori RLorenza 02/03/2020 0.25mg tablets by mouth Joseph CORNICE MAKER-C Tablets 2 times a day as needed; maximum daily dose = 4 Bupropion 1 by mouth every 30tabs Karlo Mcadams 11/29/2019 Hydrochloride ER (SR) morning (in M.D. addition to 300m 100mg Tablets ER 12HR g xl) Atorvastatin Calcium Take One Tablet 90tabs E78.2 Brywnti R. 11/05/2019 Once Daily Joseph, CORNICE MAKER-C 20mg Tablets Amitriptyline HCL take 3 tablets 90tabs B02.22 Brywnti R. 10/12/2019 25mg by mouth once Joseph, [employer]ICE MAKER-C Tablets daily at bedtime Fluticasone 2 sprays in each 1units Tori RLorenza 02/08/2019 Propionate Nasal nare daily Joseph [employer]NICE MAKER-C [place] 24- Hour 50mcg/Act Suspension Sertraline HCL Take [...] arthritis pain Vitamin C Unknown W/Vitamin E [id number] Capsules Naproxen Sodium Mcelroy, 550mg Raminder, Tablets D.D.S. History Medications Amitriptyline HCL take 1 tablet by 30tabs B02.22 Karlo Mcadams, 08/31/2019 - 10mg mouth at bedtime M.D. 10/11/2019 Tablets Oxycodone HCL 1-2 q4 hours as 30tabs B02.22 Karlo Mcadams, 08/26/2019 - 5mg Tablets needed severe M.D. 11/29/2019 pain. Amitriptyline HCL take 1 tablet by 30tabs B02.22 Karlo Mcadams, 08/24/2019 - 25mg mouth once daily M.D. 08/31/2019 Tablets at bedtime Immunizations CPT Code Status Date Vaccine Lot # [id number] Given 12/22/2019 Tdap (Adacel) [id number] Given 10/12/2019 Influenza Virus Vaccine, Quadrivalent, 3 Yr > [id number] Quad, Preserv Free 11305 Given 09/22/2018 Influenza Virus Vaccine, Quadrivalent, 3 Yr > [id number] Quad, Preserv Free 49729 Given Unknown Influenza Virus Vaccine, Quadrivalent, 3 Yr > Quad, Preserv Free [id number] Refused 04/07/2017 Influenza Virus Vaccine, Quadrivalent, 3 [...] Result H/L Range Note Comp Metabolic 12/22/2019 [facility] Sodium 137 mmol/ L Normal 135-145 Panel [phone] Potassium 4.8 mmol/L Normal 3.5-5.0 Chloride 105 [...] Egfr 90.2 >60 1 CBC Auto 12/22/2019 [facility] White Blood 5.5 10^3/ uL Normal 3.5-10.8 Diff [phone] Count Red Blood Count 4.93 10^6/uL High [...] Blood Cells % 0.0 Lipid Profile 12/22/2019 [facility] Triglycerides 104 mg/dL 2 (Trig/Chol/HDL) [phone] Cholesterol 180 mg/dL 3 HDL Cholesterol 60.8 mg/dL 4 LDL Cholesterol 98 mg/dL 5 Laboratory 12/22/2019 [facility] TSH (Thyroid 3.99 Normal 0.34-5.60 6 test finding [phone] Stim Horm) mcIU/mL Hemoglobin A1c (Glyco HGB) 5.4 % Normal 4.0-5.6 7 Laboratory test 11/25/2019 [facility] C Reactive 1.85 mg/L Normal <8.01 8 finding [phone] Protein Erythrocyte Sed Rate 10 mm/Hr Normal 0-29 9 Lyme Screen W/ Reflex To WB Negative Negative 10 Nuclear AB (Neema) By Ifa Igg <1:80 (Negative) 11 Laboratory test 10/12/2019 [facility] Vitamin D 23.4 Normal 20-50 12 finding [phone] Total 25(Oh) ng/mL CBC Auto Diff 10/12/2019 [facility] White Blood 5.0 Normal 3.5-10.8 [phone] Count 10^3/uL Red Blood Count 4.97 10^6/uL [...] Blood Cells % 0.1 Comp Metabolic 10/12/2019 [facility] Sodium 139 mmol/ L Normal 135-145 Panel [phone] Potassium 4.6 mmol/L Normal 3.5-5.0 Chloride 106 [...] Egfr 105.0 >60 13 Lipid Profile 10/12/2019 [facility] Triglycerides 98 mg/dL 14 (Trig/Chol/HDL) [phone] Cholesterol 306 mg/dL 15 HDL Cholesterol 70.5 [...] 130-159 High: 160-189 Very High: >189 6 [id number] Therapeutic target for the treatment of diabetes mellitus patients is <7% HBA1C, and in selective patients <6.0%. Please refer to [place] [employer] diabetic care guidelines for further information. 8 Copy Result to: KARLO MCADAMS ([id number]) 9 Copy Result to: KARLO MCADAMS ([id number]) 10 Copy Result to: KARLO MCADAMS ([id number]) 11 <1:80 (Negative) REFERENCE VALUE <1:80 (Negative) Test Performed by: [facility] [address] [place] [address] Revenue Tax Specialist: Juanito Chowdhury M.D. Ph.D.; CLIA# [id number] 12 Total 25-Hydroxyvitamin D2 and D3 (25-OH-VitD) [...] Office Tori Sanches F41.9 Anxiety disorder, 11:30a JARED Ruiz-C unspecified Office Visit 12/22/[address] [facility] Tori Sanches Z00.00 Encntr for general 9:00a VASYL RuizP-C adult medical exam w/o abnormal findings E78.2 Mixed hyperlipidemia B02.22 Postherpetic trigeminal neuralgia Z12.31 Encntr screen mammogram for malignant neoplasm of breast Z23 Encounter for immunization Office Visit 11/29/2019 3:45p [facility] Karlo Mcadams, B02.22 Postherpetic M.D. trigeminal neuralgia J06.9 Acute upper respiratory infection, unspecified F41.9 Anxiety disorder, unspecified Office Visit 11/05/2019 11:15a Main Office Tori CisnerosLorenza B02.22 Postherpetic Storm, CORNICE MAKER-C trigeminal neuralgia D17.1 Benign lipomatous neoplasm of skin, subcu of trunk E78.2 Mixed hyperlipidemia Office Visit 10/12/2019 10:00a [place] Mcadams, B02.22 Postherpetic M.D. trigeminal neuralgia E55.9 Vitamin D deficiency, unspecified Z23 Encounter for immunization Office Visit 09/21/2019 10:00a [place] Gianluca Zurita Mcadams, B02.22 Postherpetic M.D. trigeminal neuralgia Office Visit 08/31/2019 11:00a [facility] Karlo Mcadams, B02.22 Postherpetic M.D. trigeminal neuralgia Office Visit 08/24/2019 10:30a [place] Gianluca Zurita Mcadams, B02.22 Postherpetic M.D. trigeminal neuralgia Assessments Date Code Description Provider 02/03/2020 F41.9 Anxiety disorder, unspecified Tori Ruiz, CORNICE MAKER-C 12/22/2019 Z00.00 Encounter for general adult medical JARED Raya- Eliseo examination without abnormal findings 12/22/2019 E78.2 Mixed hyperlipidemia Tori Ruiz, CORNICE MAKER-C 12/22/2019 B02.22 Postherpetic trigeminal neuralgia Tori Ruiz, CORNICE MAKER-C 12/22/2019 Z12.31 Encounter for screening mammogram for Tori Ruiz CORNICE MAKER-C malignant neoplasm of breast 12/22/2019 Z23 Encounter for immunization Tori Ruiz, CORNICE MAKER-C 11/29/2019 B02.22 Postherpetic trigeminal neuralgia Karlo Mcadams M.D. 11/29/2019 J06.9 Acute upper respiratory infection, Karlo Mcadams M.D. unspecified 11/29/2019 F41.9 Anxiety disorder, unspecified Karlo Mcadams M.D. 11/05/2019 B02.22 Postherpetic trigeminal neuralgia Tori Ruiz, CORNICE MAKER-C 11/05/2019 D17.1 Benign lipomatous neoplasm of skin and Brywangela Ruiz, CORNICE MAKER-C subcutaneous tissue of trunk 11/05/2019 E78.2 Mixed hyperlipidemia JARED Raya-Eliseo 10/12/2019 B02.22 Postherpetic trigeminal neuralgia Karlo Mcadams M.D. 10/12/2019 E55.9 Vitamin D deficiency, unspecified Karlo Mcadams M.D. 10/12/2019 Z23 Encounter for immunization Karlo Mcadams M.D. 09/21/2019 B02.22 Postherpetic trigeminal neuralgia Karlo Mcadams M.D. 08/31/2019 B02.22 Postherpetic trigeminal neuralgia Karlo Mcadmas M.D. 08/24/2019 B02.22 Postherpetic trigeminal neuralgia Karlo Mcadams M.D. Plan of Treatment No Information Available Functional Status Description No Information Available Mental Status Description No Information Available Referrals Refer to Reason for Referral Status Appt Date Mickey Kang Referral to neurology for post herpetic Scheduled 2019 neuralgia/trigeminal neuralgia. - - Please contact Pt to schedule apt. - - Please fax appointment date/time to [facility], . [facility] [place] [address] [phone]
--- OUTSIDE RECORDS SUMMARY | 2020-02-24 15:15 | XMS REPORT | Continuity of Care Document ---
:1970 External Reference #:[id number] Author Name Ayala Redman M.D., RMathew (transmitted by agent of provider Cherelle Rose) Address [address] [place] [address] Problems Description No Information Available Social History [...] Tablets Alprazolam take 1 to 2 30tabs Brywangela RLorenza 02/03/2020 0.25mg tablets by mouth Joseph ROLLER SETTER-C Tablets 2 times a day as needed; maximum daily dose = 4 Bupropion 1 by mouth every 30tabs Karlo Mcadams, 11/29/2019 Hydrochloride ER (SR) morning (in M.D. addition to 300m 100mg Tablets ER 12HR g xl) Atorvastatin Calcium Take One Tablet 90tabs E78.2 Brywnti RLorenza 11/05/2019 Once Daily Joseph ROLLER SETTER-C 20mg Tablets Amitriptyline HCL take 3 tablets 90tabs B02.22 Shawnti R. 10/12/2019 25mg by mouth once Storm, ROLLER SETTER-C Tablets daily at bedtime Fluticasone 2 sprays in each 1units Shawnti R. 02/08/2019 Propionate Nasal nare daily Storm, ROLLER SETTER-C [place] 24- Hour 50mcg/Act Suspension Sertraline HCL Take [...] arthritis pain Vitamin C Unknown W/Vitamin E [id number] Capsules Naproxen Sodium Mcelroy, 550mg Raminder, Tablets D.D.S. History Medications Amitriptyline HCL take 1 tablet by 30tabs B02.22 Karlo Mcadams, 08/31/2019 - 10mg mouth at bedtime M.D. 10/11/2019 Tablets Oxycodone HCL 1-2 q4 hours as 30tabs B02.22 Karlo Mcadams, 08/26/2019 - 5mg Tablets needed severe M.D. 11/29/2019 pain. Immunizations CPT Code Status Date Vaccine Lot # [id number] Given 12/22/2019 Tdap (Adacel) [id number] Given 10/12/2019 Influenza Virus Vaccine, Quadrivalent, 3 Yr > [id number] Quad, Preserv Free 37711 Given 09/22/2018 Influenza Virus Vaccine, Quadrivalent, 3 Yr > [id number] Quad, Preserv Free 45384 Given Unknown Influenza Virus Vaccine, Quadrivalent, 3 Yr > Quad, Preserv Free 85602 Refused 04/07/2017 Influenza Virus Vaccine, Quadrivalent, 3 [...] Result H/L Range Note Comp Metabolic 12/22/2019 [facility] Sodium 137 mmol/ L Normal 135-145 Panel [phone] Potassium 4.8 mmol/L Normal 3.5-5.0 Chloride 105 [...] Egfr 90.2 >60 1 CBC Auto 12/22/2019 [facility] White Blood 5.5 10^3/ uL Normal 3.5-10.8 Diff [phone] Count Red Blood Count 4.93 10^6/uL High [...] Blood Cells % 0.0 Lipid Profile 12/22/2019 [facility] Triglycerides 104 mg/dL 2 (Trig/Chol/HDL) [phone] Cholesterol 180 mg/dL 3 HDL Cholesterol 60.8 mg/dL 4 LDL Cholesterol 98 mg/dL 5 Laboratory 12/22/2019 [facility] TSH (Thyroid 3.99 Normal 0.34-5.60 6 test finding [phone] Stim Horm) mcIU/mL Hemoglobin A1c (Glyco HGB) 5.4 % Normal 4.0-5.6 7 Laboratory test 11/25/2019 [facility] C Reactive 1.85 mg/L Normal <8.01 8 finding [phone] Protein Erythrocyte Sed Rate 10 mm/Hr Normal 0-29 9 Lyme Screen W/ Reflex To WB Negative Negative 10 Nuclear AB (Neema) By Ifa Igg <1:80 (Negative) 11 Laboratory test 10/12/2019 [facility] Vitamin D 23.4 Normal 20-50 12 finding [phone] Total 25(Oh) ng/mL CBC Auto Diff 10/12/2019 [facility] White Blood 5.0 Normal 3.5-10.8 [phone] Count 10^3/uL Red Blood Count 4.97 10^6/uL [...] Blood Cells % 0.1 Comp Metabolic 10/12/2019 [facility] Sodium 139 mmol/ L Normal 135-145 Panel [phone] Potassium 4.6 mmol/L Normal 3.5-5.0 Chloride 106 [...] Egfr 105.0 >60 13 Lipid Profile 10/12/2019 [facility] Triglycerides 98 mg/dL 14 (Trig/Chol/HDL) [phone] Cholesterol 306 mg/dL 15 HDL Cholesterol 70.5 [...] 130-159 High: 160-189 Very High: >189 6 [id number] 7 Therapeutic target for the treatment of diabetes mellitus patients is <7% HBA1C, and in selective patients <6.0%. Please refer to [place] [employer] diabetic care guidelines for further information. 8 Copy Result to: KARLO MCADAMS ([id number]) 9 Copy Result to: KARLO MCADAMS ([id number]) 10 Copy Result to: KARLO MCADAMS ([id number]) 11 <1:80 (Negative) REFERENCE VALUE <1:80 (Negative) Test Performed by: [facility] [address] [place] [address] [employer] Laborer: Juanito Chowdhury M.D. Ph.D.; CLIA# [id number] 12 Total 25-Hydroxyvitamin D2 and D3 (25-OH-VitD) [...] Main Office Ayala Redman, R10.9 Unspecified 10:45a Fidel Cade abdominal pain Office Visit 02/03/2020 Main Office Tori Sanches F41.9 Anxiety disorder, 11:30a VASYL RuizP-C unspecified Office Visit 12/22/2019 [facility] Tori Sanches Z00.00 Encntr for general 9:00a Joseph ROLLER SETTER-C adult medical exam w/o abnormal findings E78.2 Mixed hyperlipidemia B02.22 Postherpetic trigeminal neuralgia Z12.31 Encntr screen mammogram for malignant neoplasm of breast Z23 Encounter for immunization Office Visit 11/29/2019 3:45p [facility] Karlo Mcadams, B02.22 Postherpetic M.D. trigeminal neuralgia J06.9 Acute upper respiratory infection, unspecified F41.9 Anxiety disorder, unspecified Office Visit 11/05/2019 11:15a Main Office Brywnturiel Cisneros. B02.22 Postherpetic Storm, ROLLER SETTER-C trigeminal neuralgia D17.1 Benign lipomatous neoplasm of skin, subcu of trunk E78.2 Mixed hyperlipidemia Office Visit 10/12/2019 10:00a [facility] Karlo Mcadams, B02.22 Postherpetic M.D. trigeminal neuralgia E55.9 Vitamin D deficiency, unspecified Z23 Encounter for immunization Office Visit 09/21/2019 10:00a [facility] Karlo Mcadams, B02.22 Postherpetic M.D. trigeminal neuralgia Office Visit 08/31/2019 11:00a [facility] Karlo Pema, B02.22 Postherpetic M.D. trigeminal neuralgia Assessments Date Code Description Provider 02/24/2020 R10.9 Unspecified abdominal pain Ayala Redman M.D., R.D. 02/23/2020 R10.9 Unspecified abdominal pain Ayala Redman M.D., R.D. 02/03/2020 F41.9 Anxiety disorder, unspecified Tori Ruiz, ROLLER SETTER-C 12/22/2019 Z00.00 Encounter for general adult medical Tori Ruiz ROLLER SETTER- C examination without abnormal findings 12/22/2019 E78.2 Mixed hyperlipidemia Milnti R. Joseph, ROLLER SETTER-C 12/22/2019 B02.22 Postherpetic trigeminal neuralgia Milnturiel RLorenza Ruiz, ROLLER SETTER-C 12/22/2019 Z12.31 Encounter for screening mammogram for Shamoris R. Joseph ROLLER SETTER-C malignant neoplasm of breast 12/22/2019 Z23 Encounter for immunization Tori Ruiz, ROLLER SETTER-C 11/29/2019 B02.22 Postherpetic trigeminal neuralgia Karlo Mcadams M.D. 11/29/2019 J06.9 Acute upper respiratory infection, Karlo Mcadams M.D. unspecified 11/29/2019 F41.9 Anxiety disorder, unspecified Karlo Mcadams M.D. 11/05/2019 B02.22 Postherpetic trigeminal neuralgia YANIQUE Raya 11/05/2019 D17.1 Benign lipomatous neoplasm of [...] - - Please fax appointment date/time to [facility], [phone]. [address] [facility] [place] [address] [phone]
[2020-02-24 15:31] LABS: Urine Appearance Clear; Urine Bilirubin Negative (Negative); Urine Blood Negative (Negative); Urine Color Yellow; Urine Glucose Negative (Negative); Urine Ketones Negative (Negative); Urine Nitrite Negative (Negative); Urine Protein Negative (Negative); Urine Specific Gravity 1.018 (1.010-1.030); Urine Urobilinogen Negative (Negative)
[2020-02-24 15:36] LABS: Urine Bacteria 1+ (Absent); Urine Red Blood Cell Trace(0-2/hpf) (Absent); Urine Squamous Epithelial Cell Present (Absent); Urine White Blood Cell Trace(0-5/hpf) (Absent)
[2020-02-24 15:50] VITALS: BP 146/104
== END 2020-02-24 15:46 | disposition home or self-care (01) ==
LOC: ED 12:56
DX: R10.9 Unspecified abdominal pain (principal); R19.7 Diarrhea, unspecified; Z88.8 Allergy status to other drugs, medicaments and biological substances; Z79.899 Other long term (current) drug therapy; F17.210 Nicotine dependence, cigarettes, uncomplicated
CPT/HCPCS: 36415; 74176; 76830; 80053; 81003; 81015; 83605; 83690; 85025; 86140; 87086; 96361; 96374; 96375; 99283; J2270; J2405